=== PATIENT | female | born 1980 | race American Indian/Alaskan Native ===

== ENCOUNTER 2019-02-16 22:41 | Emergency (ER) | payer OTHER ==
[2019-02-16] MEDS ORDERED: NACL 0.9% 1000 ML 1,000 ML IV ONE (23:10)
--- NOTE | 2019-02-16 23:16 | Emergency Department Report ---
ED Female HPI - General Chief complaint: Vaginal Bleeding Stated complaint: ABD PAIN Time Seen by Provider: 02/16/19 23:03 Source: EMS Mode of arrival: Stretcher Limitations: No Limitations - History of Present Illness Initial comments: Patient is 39 years old female 5 para 4 at 8 weeks . Patient presented to the ER complaining of vaginal bleeding. Patient stated that she changed her pads approximately 8 times since 6:00. Patient stated that symptoms started 5 days ago and she went to another ER and had an ultrasound and she was told that she is having miscarriage and there is no baby heartbeat. Patient stated that her symptoms just got worse tonight. Patient denied any dizziness, chest pain or shortness of breath. MD Complaint: vaginal bleeding, pelvic pain -: days(s) (5) Radiation: suprapubic Severity: moderate Severity scale (0 -10): 5 Quality: cramping Are you Now?: Yes ED Review of Systems ROS: Stated complaint: ABD PAIN Other details as noted in HPI Comment: All other systems reviewed and negative Constitutional: denies: chills, fever ENT: denies: throat pain Cardiovascular: denies: chest pain, palpitations Gastrointestinal: abdominal pain. denies: nausea, vomiting, diarrhea, constipation, hematemesis, melena, hematochezia Genitourinary: abnormal menses. denies: hematuria, dyspareunia Musculoskeletal: denies: back pain Neurological: denies: headache, weakness, numbness, paresthesias, confusion, abnormal gait, vertigo ED Past Medical Hx - Past Medical History Previous Medical History?: No - Surgical History Past Surgical History?: No - Social History Smoking Status: Never Smoker Substance Use Type: None ED Physical Exam - General Limitations: No Limitations General appearance: alert, in no apparent distress - Head Head exam: Present: atraumatic, normocephalic, normal inspection - Eye Eye exam: Present: normal appearance, PERRL - ENT ENT exam: Present: normal exam, normal orophraynx, mucous membranes moist - Neck Neck exam: Present: normal inspection, full ROM. Absent: tenderness, meningismus, lymphadenopathy, thyromegaly - Respiratory Respiratory exam: Present: normal lung sounds bilaterally - Cardiovascular Cardiovascular Exam: Present: regular rate, normal rhythm, normal heart sounds - GI/Abdominal GI/Abdominal exam: Present: soft, normal bowel sounds. Absent: distended, tenderness, guarding, rebound, rigid, organomegaly, mass, bruit, pulsatile mass, hernia - Extremities Exam Extremities exam: Present: normal inspection, full ROM, normal capillary refill. Absent: pedal edema, calf tenderness - Back Exam Back exam: Present: normal inspection, full ROM. Absent: CVA tenderness (R), CVA tenderness (L), muscle spasm, paraspinal tenderness, vertebral tenderness - Neurological Exam Neurological exam: Present: alert, oriented X3, CN II-XII intact, normal gait, reflexes normal - Psychiatric Psychiatric exam: Present: normal mood - Skin Skin exam: Present: warm, intact, normal color ED Course Vital Signs 02/16/19 02/17/19 23:01 01:18 Temperature 99.3 F Pulse Rate 93 H 88 Respiratory 18 18 Rate Blood Pressure 107/68 Blood Pressure 112/61 [Right] O2 Sat by Pulse 100 97 Oximetry ED Medical Decision Making - Lab Data Result diagrams: 02/16/19 23:18 02/16/19 23:18 - Radiology Data Radiology results: report reviewed Referring Physician: JULIAN BOONE Patient Name: HUONG PRATER Date of : 1980 Sex: Female Report Date: 2019-02-17 Report Status: [place] [address] Ultrasound Report Signed Patient: HUONG PRATER MR#: [id number] : 1980 Acct:[id number] Age/Sex: 39 / F ADM Date: 02/16/19 Loc: ED Attending Dr: Ordering Physician: JULIAN BOONE Date of Service: 02/16/19 Procedure(s): US OB transvaginal Accession Number(s): [id number] cc: JULIAN BOONE US OB <= 14 weeks fetus, US OB transvaginal INDICATION / CLINICAL INFORMATION: 8 weeks , vaginal bleeding abdominal cramp. COMPARISON: None available. FINDINGS: Uterus measures 10 cm. The myometrial echogenicity is inhomogeneous most likely on the basis of uterine fibroids. The endometrial stripe thickness is 16 mm. No evidence of intrauterine . The right ovary measures 2.3 x 2.0 cm. Left ovary measures 4.2 x 2.6 cm. Multiple left ovarian cysts are identified. Doppler imaging shows normal blood flow in both ovaries. There is a small free fluid collection identified in the cul-de-sac. At the level of the cervix there is an area of inhomogeneous echogenicity that could represent blood clot. IMPRESSION: 1. No demonstrated intrauterine . 2. Small left ovarian cyst, no evidence of ovarian torsion. 3. Hypoechoic echogenic area in the cervical canal probably representing blood clot. Signer Name: Pablo Eckert MD Signed: 02/17/2019 1:10 AM Workstation Name: [id number] Transcribed By: NEFTALY Dictated By: Pablo Eckert MD Electronically Authenticated By: Pablo Eckert MD Signed Date/Time: 02/17/19109 DD/ 6 TD/TT: - Medical Decision Making Patient is 39 years old female 5 para 4 at 8 weeks . Patient presented to the ER complaining of vaginal bleeding. Patient stated that she changed her pads approximately 8 times since 6:00. Patient stated that symptoms started 5 days ago and she went to another ER and had an ultrasound and she was told that she is having miscarriage and there is no baby heartbeat. Patient stated that her symptoms just got worse tonight. Patient denied any dizziness, chest pain or shortness of breath. Patient continued to bleed in the ER. Vital signs stable. H&H is stable. I discussed the patient is Dr. Tra Michel, he stated that he is coming down to evaluate the patient. Critical care attestation.: If time is entered above; I have spent that time in minutes in the direct care of this critically ill patient, excluding procedure time. ED Disposition Clinical Impression: Vaginal bleeding during , Abdominal pain affecting Disposition: OP ADMIT IP TO THIS HOSP Is pt being admited?: Yes Condition: Stable
[2019-02-16 23:32] LABS: Basophils % (Auto) 0.4 % (0.0-1.8); Eosinophils % (Auto) 0.5 % (0.0-4.3); Hematocrit 33.2 % (30.3-42.9); Hemoglobin 11.4 gm/dl (10.1-14.3); Lymphocytes # (Auto) 0.8 K/mm3 (1.2-5.4); Lymphocytes % (Auto) 10.5 % (13.4-35.0); Mean Corpuscular HGB Conc 34 % (30-34); Mean Corpuscular Hemoglobin 30 pg (28-32); Mean Corpuscular Volume 89 fl (79-97); Monocytes # (Auto) 0.3 K/mm3 (0.0-0.8); Monocytes % (Auto) 3.7 % (0.0-7.3); Platelet Count 155 K/mm3 (140-440); Red Blood Count 3.73 M/mm3 (3.65-5.03); Red Cell Distribution Width 13.9 % (13.2-15.2)
[2019-02-16 23:51] LABS: BUN/Creatinine Ratio 32; Blood Urea Nitrogen 19 mg/dL (7-17); Hemolysis Index 8
[2019-02-17 00:01] LABS: INR 1.09 (0.87-1.13)
--- NOTE | 2019-02-17 01:14 | Ultrasound Report ---
US OB <= 14 weeks fetus, US OB transvaginal INDICATION / CLINICAL INFORMATION: 8 weeks , vaginal bleeding abdominal cramp. COMPARISON: None available. FINDINGS: Uterus measures 10 cm. The myometrial echogenicity is inhomogeneous most likely on the basis of uterine fibroids. The endometrial stripe thickness is 16 mm. No evidence of intrauterine . The right ovary measures 2.3 x 2.0 cm. Left ovary measures 4.2 x 2.6 cm. Multiple left ovarian cysts are identified. Doppler imaging shows normal blood flow in both ovaries. There is a small free fluid collection identified in the cul-de-sac. At the level of the cervix there is an area of inhomogeneous echogenicity that could represent blood clot. IMPRESSION: 1. No demonstrated intrauterine . 2. Small left ovarian cyst, no evidence of ovarian torsion. 3. Hypoechoic echogenic area in the cervical canal probably representing blood clot. Signer Name: Pablo Eckert MD Signed: 02/17/2019 1:10 AM Workstation Name: [id number]
[2019-02-17 02:36] VITALS: BP 104/74
== END 2019-02-17 02:36 | disposition admitted as inpatient to this hospital (09) ==
LOC: ED 22:41
DX: O26.891 Other specified pregnancy related conditions, first trimester (principal); R10.2 Pelvic and perineal pain; O20.8 Other hemorrhage in early pregnancy; O34.81 Maternal care for other abnormalities of pelvic organs, first trimester; N83.202 Unspecified ovarian cyst, left side; Z3A.01 Less than 8 weeks gestation of pregnancy
CPT/HCPCS: 36415; 76801; 76817; 80048; 84702; 85025; 85610; 86900; 86901; 99284; J7030